=== PATIENT | female | born 1985 | race Two or more races ===

== ENCOUNTER 2022-09-30 18:59 | Emergency (ER) | payer MEDICAID, OTHER ==
[~2022-09-30] VITALS: Ht 170.2 cm; Wt 65.0 kg
[2022-09-30 19:15] VITALS: BP 84/99
[2022-09-30 22:47] LABS: Basophils # (auto) 0.1 10 ^3/uL (0-0.2); Eosinophils # (auto) 0.1 10 ^3/uL (0-0.8); Eosinophils % (auto) 0.4 % (0.0-7.0); Monocytes # (auto) 0.9 10 ^3/uL (0-1.3); Nucleated Red Blood Cells % 0.1 %
[2022-09-30 22:49] LABS: Basophils % (auto) 0.4 % (0.0-2.0); Hematocrit 51.5 % (36.0-46.0); Hemoglobin 17.6 g/dL (12.2-16.2); Lymphocytes # (auto) 2.2 10 ^3/uL (0.4-5.4); Lymphocytes % (auto) 17.8 % (10.0-50.0); Mean Corpuscular Hemoglobin 36.1 pg (28.0-32.0); Mean Corpuscular Hgb Conc. 34.1 g/dL (32.0-36.0); Mean Corpuscular Volume 105.7 fL (80.0-100.0); Monocytes % (auto) 7.4 % (0.0-12.0); Neutrophils # (auto) 9.2 10 ^3/uL (1.6-8.6); Red Blood Cells 4.87 10^6/uL (4.0-5.20); Red Cell Distribution Width 14.5 % (11.8-14.3); White Blood Cell 12.4 10^3/uL (4.4-10.8)
[2022-09-30 23:06] LABS: BUN/Creatinine Ratio 15.6; Calcium 8.7 mg/dL (8.5-10.1)
[2022-09-30] MEDS ORDERED: AMOX500C2 PO (23:12)
[2022-09-30] MEDS ORDERED: ACETAMINOPHEN 650 mg PER 20.3 mL UD PO ONE (23:30)
[2022-09-30] MEDS ORDERED: POTASSIUM CHL 20 Meq TABLET PO ONE (23:30)
== END 2022-10-01 00:10 | disposition home or self-care (01) ==
LOC: ER 18:59
DX: J03.90 Acute tonsillitis, unspecified (principal); E87.6 Hypokalemia; F17.210 Nicotine dependence, cigarettes, uncomplicated; Z20.822 Contact with and (suspected) exposure to COVID-19
CPT/HCPCS: 36415; 80048; 85025; 86308; 87426; 87804